=== PATIENT | male | born 1965 | race African-American/Black ===

== ENCOUNTER 2017-03-13 01:09 | Emergency (ER) | payer MEDICAID ==
[~2017-03-13] VITALS: Ht 162.6 cm; Wt 54.0 kg
[2017-03-13 03:06] LABS: BASOPHILS % 0.4 % (0.0-2.0); HEMATOCRIT. 45.8 % (42.0-52.0); HEMOGLOBIN. 15.5 g/dL (14.0-18.0); LYMPHOCYTES % 11.2 % (20.0-50.0); MEAN CORPUSCULAR HEMOGLOBIN 31.1 pg (28.0-32.0); MEAN CORPUSCULAR VOLUME 92.2 fL (80.0-94.0); MEAN PLATELET VOLUME 7.5 fl (7.4-10.4); MONOCYTES % 12.5 % (2.0-8.0); NEUTROPHILS % 75.9 % (40.0-76.0); PLATELET 261 x1000/uL (130-400); RED BLOOD CELL COUNT 4.96 mill/uL (4.7-6.1); RED CELL DISTRIBUTION WIDTH 13.5 % (11.6-14.6)
[2017-03-13 03:08] LABS: CARBON DIOXIDE 24 mEq/L (21-32); CHLORIDE 107 mEq/L (98-107); ETHANOL BLOOD < 10 mg/dL
[2017-03-13 03:11] LABS: *AMPHETAMINES SCREEN URINE NEGATIVE (NEGATIVE); *BARBITURATES SCREEN URINE NEGATIVE (NEGATIVE); *BENZODIAZEPINES SCREEN URINE NEGATIVE (NEGATIVE); CANNABINOID URINE SCREEN PRESUMTIVE POSITIVE (NEGATIVE); METHADONE URINE SCREEN NEGATIVE (NEGATIVE); OPIATES URINE SCREEN NEGATIVE (NEGATIVE); PHENCYCLIDINE URINE SCREEN NEGATIVE (NEGATIVE)
[2017-03-13 04:36] LABS: *COCAINE SCREEN URINE NEGATIVE (NEGATIVE)
[2017-03-13 06:05] VITALS: BP 149/91
== END 2017-03-13 06:08 | disposition home or self-care (01) ==
LOC: ER 01:09
DX: F22 Delusional disorders (principal); R41.82 Altered mental status, unspecified; Z79.899 Other long term (current) drug therapy
CPT/HCPCS: 36415; 80053; 80305; 80307; 80329; 85025; 99284; G0482

== ENCOUNTER 2017-03-27 09:09 | Emergency (ER) | payer MEDICAID ==
[~2017-03-27] VITALS: Ht 160 cm; Wt 58.0 kg
[2017-03-27] MEDS ORDERED: ACETAMINOPHEN 325MG TABLET PO ONE (10:45)
[2017-03-27 12:13] VITALS: BP 112/78
== END 2017-03-27 12:37 | disposition home or self-care (01) ==
LOC: ER 09:09
DX: M25.562 Pain in left knee (principal)
CPT/HCPCS: 73562; 99284; Z7610

== ENCOUNTER 2017-08-27 02:36 | Emergency (ER) | payer MEDICAID | END 2017-08-27 03:20 | disposition left against medical advice (07) | LOC: ER 02:36 | DX: Z53.21 Procedure and treatment not carried out due to patient leaving prior to being seen by health care provider (principal) ==